=== PATIENT | male | born 1995 | race Hispanic/Latino ===

== ENCOUNTER 2020-12-18 10:49 | Emergency (ER) | payer SELFPAY ==
[2020-12-18] MEDS ORDERED: Boostrix 0.5 ML (Tdap) VIAL ONE (11:29)
[2020-12-18] MEDS ORDERED: CEFAZOLIN 1 GM VIAL ONE (11:29)
[2020-12-18 11:32] LABS: #Monocytes 0.7 10x3/uL (0.0-1.1); #Neutrophils 12.1 10x3/uL (1.5-8.4); %Basophils 0.3 % (0.0-2.0); %Eosinophils 0.1 % (0.0-6.0); %Lymphocytes 4.4 % (18.0-47.0); %Monocytes 5.1 % (0.0-10.0); %Neutrophils 89.5 % (40.0-75.0); Hemoglobin 15.4 g/dL (13.5-17.5); Mean Corpuscular HGB CONC 34.7 g/dL (32.0-36.0); Mean Corpuscular Hemoglobin 29.2 pg (27.0-33.0); Mean Corpuscular Volume 84.3 fl (81.2-95.1); Mean Platelet Volume 9.4 fl (7.4-10.4); Platelet Count 252 10x3/uL (150-450); RBC Distribution Width 11.8 % (11.5-14.5); Red Blood Cell (RBC) Count 5.27 10x6/uL (4.32-5.72); White Blood Cell (WBC) Count 13.5 10x3/uL (3.5-10.5)
[2020-12-18 11:49] LABS: Acetaminophen Less than 6.0 mcg/mL (10.0-30.0); Alcohol Less than 10 mg/dL (Less than 10); CK (CPK) 243 U/L (30-200); Salicylate Less than 8.0 mg/dL (15.0-30.0)
[2020-12-18 11:51] LABS: ALT (SGPT) 89 U/L (8-55); AST (SGOT) 38 U/L (5-34); Albumin 4.4 g/dL (3.5-5.0); Alkaline Phosphatase 64 U/L (40-110); Anion Gap 17 mmol/L (10-20); BUN (Urea Nitrogen) 19 mg/dL (8.9-20.6); Bilirubin, Total 1.3 mg/dL (0.2-1.2); Calc. Creatinine Clearance 0 mL/min (70-130); Calcium 9.3 mg/dL (7.8-10.44); Carbon Dioxide 19 mmol/L (22-29); Chloride 109 mmol/L (98-107); Globulin 2.5 g/dL (2.4-3.5); Glucose 121 mg/dL (70-105); Potassium 4.4 mmol/L (3.5-5.1); Protein, Total 6.9 g/dL (6.0-8.3); Sodium 141 mmol/L (136-145)
[2020-12-18 14:15] LABS: Amphetamine Not Detected (NotDetected); Barbiturates Screen Not Detected (NotDetected); Benzodiazepine Screen Not Detected (NotDetected); Cocaine Metabolite Screen Not Detected (NotDetected); Methadone Not Detected (NotDetected); Methamphetamine Not Detected (NotDetected); Opiate Screen Not Detected (NotDetected); Oxycodone Screen Not Detected (NotDetected); Phencyclidine (PCP) Not Detected (NotDetected); THC/Cannabinoid Screen Not Detected (NotDetected); Tricyclic Screen Not Detected (NotDetected)
[2020-12-18] MEDS ORDERED: Lorazepam 2 MG/ML VIAL ONE (15:16)
[2020-12-18 15:40] LABS: Acetaminophen Less than 6.0 mcg/mL (10.0-30.0)
== END 2020-12-18 15:50 | disposition home or self-care (01) ==
LOC: CSHERS 10:49
DX: S00.03XA Contusion of scalp, initial encounter (principal); S40.212A Abrasion of left shoulder, initial encounter; S40.211A Abrasion of right shoulder, initial encounter; S50.312A Abrasion of left elbow, initial encounter; S50.311A Abrasion of right elbow, initial encounter; S60.512A Abrasion of left hand, initial encounter; S60.511A Abrasion of right hand, initial encounter; S80.212A Abrasion, left knee, initial encounter; S80.211A Abrasion, right knee, initial encounter; S90.812A Abrasion, left foot, initial encounter; S90.811A Abrasion, right foot, initial encounter; S90.512A Abrasion, left ankle, initial encounter; S90.511A Abrasion, right ankle, initial encounter; F19.10 Other psychoactive substance abuse, uncomplicated; W19.XXXA Unspecified fall, initial encounter
CPT/HCPCS: 36415; 70450; 72125; 80053; 80143; 80306; 80307; 82140; 82550; 85025; 90715; 93005; 96365; 96375; J0690; J2060

== ENCOUNTER 2021-06-06 02:43 | Emergency (ER) | payer SELFPAY ==
[2021-06-06 03:22] LABS: Bilirubin Neg (Negative); Blood, Urine Negative (Negative); Clarity Clear (Clear); Glucose, Urine (Dipstick) Normal (Negative); Ketone, Urine Negative (Negative); Leukocyte Negative (Negative); Nitrite Negative (Negative); Protein, Urine (Dipstick) Negative (Neg-Trace); Urobilinogen Normal mg/dL (Less than 2); pH, Urine 6.5 (5.0-9.0)
[2021-06-06 03:30] LABS: Amphetamine Not Detected (NotDetected); Barbiturates Screen Not Detected (NotDetected); Benzodiazepine Screen Detected (NotDetected); Cocaine Metabolite Screen Detected (NotDetected); Methadone Not Detected (NotDetected); Methamphetamine Not Detected (NotDetected); Opiate Screen Not Detected (NotDetected); Oxycodone Screen Not Detected (NotDetected); Phencyclidine (PCP) Not Detected (NotDetected); THC/Cannabinoid Screen Not Detected (NotDetected); Tricyclic Screen Not Detected (NotDetected)
[2021-06-06 04:00] LABS: SARS-CoV-2 NAA Rapid Test Not Detected (NotDetected)
[2021-06-06 04:18] LABS: #Basophils 0.1 10x3/uL (0.0-0.2); #Eosinphils 0.1 10x3/uL (0.0-0.5); #Monocytes 0.6 10x3/uL (0.0-1.1); #Neutrophils 4.2 10x3/uL (1.5-8.4); %Basophils 0.9 % (0.0-2.0); %Eosinophils 1.3 % (0.0-6.0); %Lymphocytes 27.8 % (18.0-47.0); %Monocytes 8.9 % (0.0-10.0); %Neutrophils 60.8 % (40.0-75.0); Hemoglobin 16.1 g/dL (13.5-17.5); Mean Corpuscular HGB CONC 34.3 g/dL (32.0-36.0); Mean Corpuscular Hemoglobin 29.5 pg (27.0-33.0); Mean Corpuscular Volume 86.1 fl (81.2-95.1); Mean Platelet Volume 9.2 fl (7.4-10.4); Platelet Count 241 10x3/uL (150-450); RBC Distribution Width 11.9 % (11.5-14.5); Red Blood Cell (RBC) Count 5.45 10x6/uL (4.32-5.72); White Blood Cell (WBC) Count 6.9 10x3/uL (3.5-10.5)
[2021-06-06 04:36] LABS: ALT (SGPT) 131 U/L (8-55); AST (SGOT) 50 U/L (5-34); Alkaline Phosphatase 54 U/L (40-110); Anion Gap 14 mmol/L (10-20); BUN (Urea Nitrogen) 7 mg/dL (8.9-20.6); Bilirubin, Total 0.4 mg/dL (0.2-1.2); CK (CPK) 137 U/L (30-200); Calc. Creatinine Clearance 0 mL/min (70-130); Calcium 9.1 mg/dL (7.8-10.44); Carbon Dioxide 25 mmol/L (22-29); Chloride 106 mmol/L (98-107); Globulin 2.4 g/dL (2.4-3.5); Glucose 91 mg/dL (70-105); Potassium 3.6 mmol/L (3.5-5.1); Protein, Total 6.4 g/dL (6.0-8.3); Sodium 141 mmol/L (136-145)
[2021-06-06 04:37] LABS: Acetaminophen Less than 10.0 mcg/mL (10.0-30.0); Alcohol 83 mg/dL (Less than 10); Salicylate Less than 8.0 mg/dL (15.0-30.0)
[2021-06-06] MEDS ORDERED: Nicotine 14 MG PATCH ONE (08:49)
[2021-06-06] MEDS ORDERED: Lorazepam 1 MG TAB ONE ×2 (09:33→11:26)
== END 2021-06-06 13:26 ==
LOC: CSHERS 02:43
DX: F14.10 Cocaine abuse, uncomplicated (principal); R45.851 Suicidal ideations; F17.210 Nicotine dependence, cigarettes, uncomplicated; Z20.822 Contact with and (suspected) exposure to COVID-19
CPT/HCPCS: 36415; 80053; 80306; 80307; 81003; 82550; 85025; 93005; 99285; U0002

== ENCOUNTER 2021-06-22 12:01 | Inpatient (IN) | payer MEDICAID, SELFPAY ==
[2021-06-22 12:30] LABS: #Basophils 0.1 10x3/uL (0.0-0.2); #Monocytes 0.7 10x3/uL (0.0-1.1); %Basophils 0.8 % (0.0-2.0); %Eosinophils 0.1 % (0.0-6.0); %Lymphocytes 19.1 % (18.0-47.0); %Neutrophils 69.3 % (40.0-75.0); Hemoglobin 16.2 g/dL (13.5-17.5); Mean Corpuscular HGB CONC 35.8 g/dL (32.0-36.0); Mean Corpuscular Hemoglobin 29.9 pg (27.0-33.0); Mean Corpuscular Volume 83.6 fl (81.2-95.1); Mean Platelet Volume 9.1 fl (7.4-10.4); Platelet Count 217 10x3/uL (150-450); RBC Distribution Width 12.4 % (11.5-14.5); Red Blood Cell (RBC) Count 5.42 10x6/uL (4.32-5.72); White Blood Cell (WBC) Count 7.2 10x3/uL (3.5-10.5)
[2021-06-22] MEDS ORDERED: Ondansetron PF 4 MG/2 ML Vial ONE (12:34)
[2021-06-22 12:49] LABS: Alcohol 153 mg/dL (Less than 10); CK (CPK) 169 U/L (30-200); Lipase 7 U/L (8-78); Salicylate Less than 8.0 mg/dL (15.0-30.0)
[2021-06-22 12:50] LABS: ALT (SGPT) 141 U/L (8-55); Albumin 4.3 g/dL (3.5-5.0); Alkaline Phosphatase 65 U/L (40-110); Anion Gap 23 mmol/L (10-20); BUN (Urea Nitrogen) 21 mg/dL (8.9-20.6); Bilirubin, Total 0.5 mg/dL (0.2-1.2); Calc. Creatinine Clearance 0 mL/min (70-130); Calcium 8.7 mg/dL (7.8-10.44); Carbon Dioxide 18 mmol/L (22-29); Chloride 100 mmol/L (98-107); Globulin 2.8 g/dL (2.4-3.5); Glucose 119 mg/dL (70-105); Potassium 3.8 mmol/L (3.5-5.1); Protein, Total 7.1 g/dL (6.0-8.3); Sodium 137 mmol/L (136-145)
[2021-06-22 12:53] LABS: AST (SGOT) 64 U/L (5-34)
[2021-06-22 12:58] LABS: Bilirubin Neg (Negative); Blood, Urine Negative (Negative); Clarity Clear (Clear); Glucose, Urine (Dipstick) Normal (Negative); Ketone, Urine 50 mg/dL (Negative); Leukocyte Negative (Negative); Nitrite Negative (Negative); Protein, Urine (Dipstick) 15 mg/dl (Neg-Trace); Specific Gravity, Urine 1.025 (1.002-1.036); Urobilinogen Normal mg/dL (Less than 2)
[2021-06-22 13:06] LABS: Amphetamine Not Detected (NotDetected); Barbiturates Screen Not Detected (NotDetected); Benzodiazepine Screen Not Detected (NotDetected); Cocaine Metabolite Screen Not Detected (NotDetected); Methadone Not Detected (NotDetected); Methamphetamine Not Detected (NotDetected); Opiate Screen Not Detected (NotDetected); Oxycodone Screen Not Detected (NotDetected); Phencyclidine (PCP) Not Detected (NotDetected); THC/Cannabinoid Screen Detected (NotDetected); Tricyclic Screen Not Detected (NotDetected)
[2021-06-22] MEDS ORDERED: Thiamine HCl 200 MG/2 ML VIAL ONE (13:12)
[2021-06-22] MEDS ORDERED: [UNRECOGNIZED DRUG - OTHER] IV SCH (13:15)
[2021-06-22] MEDS ORDERED: DEXTROSE IV SCH (13:15)
[2021-06-22] MEDS ORDERED: ADMIXTURE FEE IV SCH (13:15)
[2021-06-22] MEDS ORDERED: ACETYLCYSTEINE IV SCH ×3 (13:15→23:00)
[2021-06-22 14:25] LABS: SARS-CoV-2 NAA Rapid Test Not Detected (NotDetected)
[2021-06-22 16:18] VITALS: BMI 27.1
[2021-06-22] MEDS ORDERED: Ondansetron PF 4 MG/2 ML Vial IVP PRN (17:23)
[2021-06-22] MEDS: Nicotine 14 MG PATCH TD SCH (17:40)
[2021-06-22] MEDS ORDERED: Multivitamins, Adult 10 ML, Folic Acid 1 MG, Thiamine HCl 100 MG in Dextrose 5 %-0.45 %... IV SCH (18:15)
[2021-06-22] MEDS ORDERED: DEXTROSE 5% IV SCH ×2 (19:00→23:00)
[2021-06-22] MEDS ORDERED: WATER IV SCH ×2 (19:00→23:00)
[2021-06-22] MEDS: Folic Acid 1 MG, Multivitamins, Adult 10 ML in Dextrose 5 %-0.45 % NaCl 1,000 ML IV SCH (20:12)
[2021-06-22] MEDS: Thiamine HCl 200 MG/2 ML VIAL SLOW IVP SCH (20:34)
[2021-06-22] MEDS: Famotidine 20 MG TAB PO SCH (20:35)
[2021-06-22] MEDS: Lorazepam 2 MG/ML VIAL SLOW IVP PRN (21:02)
[2021-06-22] MEDS ORDERED: Electrolyte Replacement Protocol 1 EACH FS PRN (23:45)
[2021-06-22] MEDS ORDERED: Lorazepam 2 MG/ML VIAL IM PRN (23:45)
[2021-06-22] MEDS ORDERED: Ondansetron ODT 4 MG TAB PO PRN (23:45)
[2021-06-23] MEDS: Lorazepam 1 MG TAB PO SCH ×4 (03:42→18:09)
[2021-06-23 04:35] LABS: ALT (SGPT) 94 U/L (8-55); AST (SGOT) 26 U/L (5-34); Albumin 3.5 g/dL (3.5-5.0); Alkaline Phosphatase 56 U/L (40-110); Anion Gap 16 mmol/L (10-20); BUN (Urea Nitrogen) 7 mg/dL (8.9-20.6); Bilirubin, Total 0.7 mg/dL (0.2-1.2); Calc. Creatinine Clearance 150 mL/min (70-130); Calcium 8.7 mg/dL (7.8-10.44); Carbon Dioxide 21 mmol/L (22-29); Chloride 105 mmol/L (98-107); Globulin 2.2 g/dL (2.4-3.5); Glucose 111 mg/dL (70-105); Protein, Total 5.7 g/dL (6.0-8.3); Sodium 139 mmol/L (136-145)
[2021-06-23 04:36] LABS: #Eosinphils 0.1 10x3/uL (0.0-0.5); #Monocytes 0.8 10x3/uL (0.0-1.1); #Neutrophils 4.8 10x3/uL (1.5-8.4); %Basophils 0.5 % (0.0-2.0); %Eosinophils 0.7 % (0.0-6.0); %Lymphocytes 22.1 % (18.0-47.0); %Monocytes 10.8 % (0.0-10.0); %Neutrophils 65.6 % (40.0-75.0); Hemoglobin 14.9 g/dL (13.5-17.5); Mean Corpuscular HGB CONC 35.9 g/dL (32.0-36.0); Mean Corpuscular Volume 83.5 fl (81.2-95.1); Mean Platelet Volume 9.2 fl (7.4-10.4); Platelet Count 219 10x3/uL (150-450); RBC Distribution Width 12.2 % (11.5-14.5); Red Blood Cell (RBC) Count 4.97 10x6/uL (4.32-5.72); White Blood Cell (WBC) Count 7.3 10x3/uL (3.5-10.5)
[2021-06-23] MEDS: Lorazepam 2 MG/ML VIAL SLOW IVP PRN ×4 (05:18→22:04)
[2021-06-23] MEDS: Potassium Chloride 20 MEQ in Premix Bag 1 BAG IVPB SCH ×2 (05:22→07:47)
[2021-06-23] MEDS: Famotidine 20 MG TAB PO SCH ×2 (08:59→20:00)
[2021-06-23] MEDS: Lorazepam 1 MG TAB PO PRN ×3 (12:18→20:12)
[2021-06-23] MEDS ORDERED: Potassium Chloride 20 MEQ TAB PO SCH (14:45)
[2021-06-23 16:09] LABS: ALT (SGPT) 99 U/L (8-55); AST (SGOT) 24 U/L (5-34); Acetaminophen Less than 10.0 mcg/mL (10.0-30.0); Albumin 4.3 g/dL (3.5-5.0); Alkaline Phosphatase 59 U/L (40-110); Anion Gap 14 mmol/L (10-20); BUN (Urea Nitrogen) 6 mg/dL (8.9-20.6); Bilirubin, Direct 0.3 mg/dL (0.1-0.3); Bilirubin, Total 0.7 mg/dL (0.2-1.2); Calc. Creatinine Clearance 158 mL/min (70-130); Calcium 9.2 mg/dL (7.8-10.44); Carbon Dioxide 23 mmol/L (22-29); Chloride 107 mmol/L (98-107); Glucose 111 mg/dL (70-105); Potassium 3.5 mmol/L (3.5-5.1); Protein, Total 7.1 g/dL (6.0-8.3); Sodium 140 mmol/L (136-145)
[2021-06-23] MEDS: Nicotine 14 MG PATCH TD SCH (18:16)
[2021-06-23] MEDS: Folic Acid 1 MG, Multivitamins, Adult 10 ML in Dextrose 5 %-0.45 % NaCl 1,000 ML IV SCH (22:42)
[2021-06-23] MEDS: Thiamine HCl 200 MG/2 ML VIAL SLOW IVP SCH (22:47)
[2021-06-24] MEDS: Lorazepam 1 MG TAB PO SCH ×4 (00:03→17:27)
[2021-06-24] MEDS: Nicotine 14 MG PATCH TD SCH (01:31)
[2021-06-24] MEDS ORDERED: Lorazepam 2 MG/ML VIAL SLOW IVP SCH (01:45)
[2021-06-24] MEDS: Lorazepam 1 MG TAB PO PRN ×2 (01:59→07:59)
[2021-06-24] MEDS: Lorazepam 2 MG/ML VIAL SLOW IVP PRN (04:02)
[2021-06-24 04:18] LABS: Anion Gap 14 mmol/L (10-20); BUN (Urea Nitrogen) 6 mg/dL (8.9-20.6); Calc. Creatinine Clearance 158 mL/min (70-130); Carbon Dioxide 23 mmol/L (22-29); Chloride 105 mmol/L (98-107); Glucose 112 mg/dL (70-105); Magnesium 1.8 mg/dL (1.6-2.6); Potassium 3.4 mmol/L (3.5-5.1); Sodium 139 mmol/L (136-145)
[2021-06-24 04:20] LABS: Phosphorus 1.6 mg/dL (2.3-4.7)
[2021-06-24] MEDS ORDERED: Potassium Phosphate 30 MMOL in Sodium Chloride 0.9% 250 ML 250 ML IVPB ONE (04:30)
[2021-06-24] MEDS ORDERED: Magnesium 2 GM/50 ML(in water) 2 GM in Premix Bag 1 BAG IVPB SCH (06:30)
[2021-06-24] MEDS: Famotidine 20 MG TAB PO SCH (08:05)
[2021-06-24] MEDS ORDERED: Baclofen 10 MG TAB PO SCH (10:15)
[2021-06-24 12:26] VITALS: TEMP 98.4
[2021-06-24 13:27] LABS: Phosphorus 3.5 mg/dL (2.3-4.7)
[2021-06-24] MEDS ORDERED: Potassium Chloride 20 MEQ TAB PO SCH (14:00)
[2021-06-24 16:36] VITALS: BP 159/104
[2021-06-24] MEDS ORDERED: Lorazepam 1 MG TAB PO PRN (23:45)
[2021-06-25] MEDS ORDERED: Lorazepam 0.5 MG TAB PO SCH (06:00)
[2021-06-25] MEDS ORDERED: Multivit, Therapeutic 1 TAB PO SCH (09:00)
[2021-06-25] MEDS ORDERED: Folic Acid 1 MG TAB PO SCH (09:00)
[2021-06-25] MEDS ORDERED: Thiamine 100 MG TAB PO SCH (09:00)
[2021-06-26] MEDS ORDERED: Lorazepam 0.5 MG TAB PO PRN (06:00)
== END 2021-06-24 20:12 | disposition short-term general hospital (02) | DRG 918 ==
LOC: CSHERS 12:01 → EEVIPCON 15:41 → CSHIMCU 15:41
PROVIDERS: ADMIT Internal Medicine; ATTEND Internal Medicine
DX: T39.1X2A Poisoning by 4-Aminophenol derivatives, intentional self-harm, initial encounter (principal); Z20.822 Contact with and (suspected) exposure to COVID-19; E87.6 Hypokalemia; E83.39 Other disorders of phosphorus metabolism; F10.129 Alcohol abuse with intoxication, unspecified; F41.9 Anxiety disorder, unspecified; F32.A Depression, unspecified; F17.210 Nicotine dependence, cigarettes, uncomplicated; I95.9 Hypotension, unspecified; Z88.8 Allergy status to other drugs, medicaments and biological substances; Z79.899 Other long term (current) drug therapy
CPT/HCPCS: 36415; 70450; 71045; 80048; 80053; 80143; 80306; 80307; 81003; 82550; 83690; 83735; 84100; 85025; 93005; 94760; 96365; 96375; J0132; J2060; J2405; J3411; J3475; J3480; J7042; J7050; J7070; U0002

== ENCOUNTER 2021-09-24 02:26 | Emergency (ER) | payer MEDICAID, SELFPAY ==
[2021-09-24] MEDS ORDERED: Lorazepam 2 MG/ML VIAL ONE (02:39)
== END 2021-09-24 06:05 | disposition home or self-care (01) ==
LOC: CSHERS 02:26
DX: F41.1 Generalized anxiety disorder (principal); F17.210 Nicotine dependence, cigarettes, uncomplicated; Z79.899 Other long term (current) drug therapy
CPT/HCPCS: 96374; J2060

== ENCOUNTER 2022-04-08 01:43 | Emergency (ER) | payer MEDICAID | END 2022-04-08 02:45 | LOC: CSHERS 01:43 | DX: S61.411A Laceration without foreign body of right hand, initial encounter (principal); S00.01XA Abrasion of scalp, initial encounter; F17.210 Nicotine dependence, cigarettes, uncomplicated; W26.0XXA Contact with knife, initial encounter | CPT/HCPCS: 99283 ==